=== PATIENT | female | born 1995 | race Caucasian/White ===

== ENCOUNTER → 2016-04-18 | Outpatient (CLI) | payer OTHER | END | disposition home or self-care (01) | LOC: LABWHC1 11:40 | PROVIDERS: ATTEND Pediatrics | DX: E07.9 Disorder of thyroid, unspecified (principal) | CPT/HCPCS: 36415; 84439; 84443 ==

== ENCOUNTER 2019-08-04 21:56 | Emergency (ER) | payer OTHER ==
[2019-08-04 22:01] VITALS: BP 150/99; PULSE 86; RESP 18; TEMP 97.8
--- NOTE | 2019-08-04 22:42 | XR ---
EXAMINATION TYPE: XR ankle complete RT DATE OF EXAM: 08/04/2019 COMPARISON: NONE HISTORY: Pain TECHNIQUE: Frontal, lateral and oblique images of the right ankle are obtained. COMPARISON: None. FINDINGS: There is no acute fracture/dislocation evident. The joint spaces appear within normal hart its. The overlying soft tissue appears unremarkable. IMPRESSION: There is no acute fracture or dislocation seen.
--- NOTE | 2019-08-04 23:14 | ED ---
Lower Extremity Injury HPI - General Chief Complaint: Extremity Injury, Lower Stated Complaint: R Foot Injury Time Seen by Provider: 08/04/19 22:18 Source: patient, RN notes reviewed, old records reviewed Mode of arrival: wheelchair Limitations: no limitations - History of Present Illness Initial Comments: This is a 21-year-old female slipped on a step causing her right ankle pain patient presents today with right ankle pain and swelling. No medical history takes no medications not requiring pain medication currently. No pain in the near had no other injury noted. Is able to bear weight but it is painful. Patient is no significant medical history takes no medications no history of surgery or orthopedic injuries in the past MD Complaint: ankle injury (Right) -: hour(s) Injury: Ankle: Right Type of Injury: inversion Place: home Severity: moderate Severity scale (1-10): 4 Improves With: nothing Worsens With: weight bearing Other Symptoms: loss of consciousness (Now) Associated Symptoms: swelling - Related Data Allergies Allergy/AdvReac Type Severity Reaction Status Date / Time Penicillins Allergy Unknown Verified 08/04/19 22:02 Childhood Review of Systems ROS Statement: Those systems with pertinent positive or pertinent negative responses have been documented in the HPI. ROS Other: All systems not noted in ROS Statement are negative. Past Medical History Past Medical History: Asthma History of Any Multi-Drug Resistant Organisms: None Reported Additional Past Surgical History / Comment(s): wisdom teeth Past Psychological History: No Psychological Hx Reported Smoking Status: Never smoker Past Alcohol Use History: Occasional Past Drug Use History: None Reported General Exam Limitations: no limitations General appearance: alert, in no apparent distress Head exam: Present: atraumatic, normocephalic, normal inspection Eye exam: Present: normal appearance, PERRL, EOMI. Absent: scleral icterus, conjunctival injection, periorbital swelling ENT exam: Present: normal exam, mucous membranes moist Neck exam: Present: normal inspection. Absent: tenderness, meningismus, lymphadenopathy Respiratory exam: Present: normal lung sounds bilaterally. Absent: respiratory distress, wheezes, rales, rhonchi, stridor Cardiovascular Exam: Present: regular rate, normal rhythm, normal heart sounds. Absent: systolic murmur, diastolic murmur, rubs, gallop, clicks GI/Abdominal exam: Present: soft, normal bowel sounds. Absent: distended, tenderness, guarding, rebound, rigid Extremities exam: Present: normal inspection, full ROM, tenderness, normal capillary refill, other (Right ankle tenderness more so to lateral malleolus). Absent: pedal edema, joint swelling, calf tenderness Back exam: Present: normal inspection Neurological exam: Present: alert, oriented X3, CN II-XII intact Psychiatric exam: Present: normal affect, normal mood Skin exam: Present: warm, dry, intact, normal color. Absent: rash Course Vital Signs 08/04/19 21:57 Temperature 97.8 F Pulse Rate 86 Respiratory 18 Rate Blood Pressure 150/99 O2 Sat by Pulse 100 Oximetry - Reevaluation(s) Reevaluation #1: 08/04/19 23:13 Medical record is reviewed Reevaluation #2: 08/04/19 23:13 Patient able to ambulate not requiring pain medication Reevaluation #3: 08/04/19 23:13 patient informed of results questions are answered Medical Decision Making - Medical Decision Making 23 female DF for evaluation patient presents today for evaluation regards to right ankle pain secondary to retinal injury inversion injury x-rays negative patient can be discharged home - Radiology Data Radiology results: report reviewed (X-ray right ankle negative for acute medical injury), image reviewed Disposition Clinical Impression: Right ankle sprain Disposition: HOME SELF-CARE Condition: Good Instructions (If sedation given, give patient instructions): Ankle Sprain (ED) Is patient prescribed a controlled substance at d/c from ED?: No Referrals: None,Stated [Primary Care Provider] - 1-2 days
== END 2019-08-04 23:25 | disposition home or self-care (01) ==
LOC: EC 21:56
DX: S93.401A Sprain of unspecified ligament of right ankle, initial encounter (principal); Z88.0 Allergy status to penicillin; W18.43XA Slipping, tripping and stumbling without falling due to stepping from one level to another, initial encounter; Y92.009 Unspecified place in unspecified non-institutional (private) residence as the place of occurrence of the external cause
CPT/HCPCS: 99284